=== PATIENT | female | born 1985 | race Caucasian/White ===

== ENCOUNTER → 2016-04-08 | Outpatient (CLI) | payer BC ==
[~2016-04-08] MED LIST: AMBIEN 10MG10 MG PO; BUSPAR DIVIDOSE15 MG PO; CEPHALEXIN250 M1 PO; EFFEXOR-XR150 MG PO; FLINTSTONES1 CTB PO; MACROBID 1100 MG/CAP PO; MOTRIN 600600 MG/TAB PO; NORCO 325 MG-51 TAB PO; PRENATAL MVI; SENOKOT S 50 MG1 TAB PO; VICODIN 5/5001 UDTAB PO
== END ==
LOC: BHSO 15:45
DX: F33.1 Major depressive disorder, recurrent, moderate (principal)

== ENCOUNTER → 2016-04-15 | Outpatient (CLI) | payer BC | LOC: BHSO 15:58 | DX: F41.1 Generalized anxiety disorder (principal) ==

== ENCOUNTER → 2016-04-22 | Outpatient (CLI) | payer BC | LOC: BHSO 15:58 | DX: F33.1 Major depressive disorder, recurrent, moderate (principal) ==

== ENCOUNTER → 2016-04-25 | Outpatient (CLI) | payer BC | LOC: BHSO 16:08 | DX: F41.1 Generalized anxiety disorder (principal) ==

== ENCOUNTER → 2016-04-29 | Outpatient (CLI) | payer BC | LOC: BHSO 15:52 | DX: F33.1 Major depressive disorder, recurrent, moderate (principal) ==

== ENCOUNTER → 2016-05-12 | Outpatient (CLI) | payer BC | LOC: BHSO 15:56 | DX: F33.1 Major depressive disorder, recurrent, moderate (principal) ==

== ENCOUNTER → 2016-05-19 | Outpatient (CLI) | payer BC | LOC: BHSO 15:48 | DX: F33.1 Major depressive disorder, recurrent, moderate (principal) ==

== ENCOUNTER → 2016-05-26 | Outpatient (CLI) | payer BC | LOC: BHSO 15:54 | DX: F41.1 Generalized anxiety disorder (principal) ==

== ENCOUNTER → 2016-06-03 | Outpatient (CLI) | payer BC | LOC: BHSO 14:55 | DX: F41.1 Generalized anxiety disorder (principal) ==

== ENCOUNTER → 2016-06-08 | Outpatient (CLI) | payer BC | LOC: BHSO 15:57 | DX: F41.1 Generalized anxiety disorder (principal) ==

== ENCOUNTER → 2016-06-16 | Outpatient (CLI) | payer BC | LOC: BHSO 15:56 | DX: F41.1 Generalized anxiety disorder (principal) ==

== ENCOUNTER → 2016-06-23 | Outpatient (CLI) | payer BC | LOC: BHSO 15:50 | DX: F41.1 Generalized anxiety disorder (principal) ==

== ENCOUNTER → 2016-06-27 | Outpatient (CLI) | payer BC | LOC: BHSO 15:03 | DX: F33.1 Major depressive disorder, recurrent, moderate (principal) ==

== ENCOUNTER → 2016-07-08 | Outpatient (CLI) | payer BC | LOC: BHSO 16:01 | DX: F41.1 Generalized anxiety disorder (principal) ==

== ENCOUNTER → 2016-07-14 | Outpatient (CLI) | payer BC | LOC: BHSO 15:52 | DX: F41.1 Generalized anxiety disorder (principal) ==

== ENCOUNTER → 2016-07-22 | Outpatient (CLI) | payer BC | LOC: BHSO 15:47 | DX: F41.1 Generalized anxiety disorder (principal) ==

== ENCOUNTER → 2016-07-25 | Outpatient (CLI) | payer BC | LOC: BHSO 16:11 | DX: F41.1 Generalized anxiety disorder (principal) ==

== ENCOUNTER → 2016-08-19 | Outpatient (CLI) | payer BC | LOC: BHSO 16:06 | DX: F33.1 Major depressive disorder, recurrent, moderate (principal) ==

== ENCOUNTER → 2016-09-02 | Outpatient (CLI) | payer BC | LOC: BHSO 15:58 | DX: F41.1 Generalized anxiety disorder (principal) ==

== ENCOUNTER → 2016-09-16 | Outpatient (CLI) | payer BC | LOC: BHSO 15:56 | DX: F41.1 Generalized anxiety disorder (principal) ==

== ENCOUNTER → 2016-09-19 | Outpatient (CLI) | payer BC | LOC: BHSO 16:11 | DX: F41.1 Generalized anxiety disorder (principal) ==

== ENCOUNTER → 2016-09-23 | Outpatient (CLI) | payer BC | LOC: BHSO 16:03 | DX: F41.1 Generalized anxiety disorder (principal) ==

== ENCOUNTER → 2016-09-30 | Outpatient (CLI) | payer BC | LOC: BHSO 15:03 | DX: F41.1 Generalized anxiety disorder (principal) ==

== ENCOUNTER → 2016-10-21 | Outpatient (CLI) | payer BC | LOC: BHSO 15:48 | DX: F41.1 Generalized anxiety disorder (principal) ==

== ENCOUNTER → 2016-11-11 | Outpatient (CLI) | payer BC | LOC: BHSO 15:41 | DX: F41.1 Generalized anxiety disorder (principal) ==

== ENCOUNTER → 2016-11-23 | Outpatient (CLI) | payer BC | LOC: BHSO 15:54 | DX: F41.1 Generalized anxiety disorder (principal) ==

== ENCOUNTER → 2016-12-08 | Outpatient (CLI) | payer BC | LOC: BHSO 15:41 | DX: F41.1 Generalized anxiety disorder (principal) ==

== ENCOUNTER → 2016-12-16 | Outpatient (CLI) | payer BC | LOC: BHSO 15:38 | DX: F41.1 Generalized anxiety disorder (principal) ==

== ENCOUNTER → 2016-12-19 | Outpatient (CLI) | payer BC | LOC: BHSO 15:52 | DX: F41.1 Generalized anxiety disorder (principal) ==

== ENCOUNTER → 2016-12-23 | Outpatient (CLI) | payer BC | LOC: BHSO 15:38 | DX: F41.1 Generalized anxiety disorder (principal) ==

== ENCOUNTER → 2016-12-30 | Outpatient (CLI) | payer BC | LOC: BHSO 16:08 | DX: F41.1 Generalized anxiety disorder (principal) ==

== ENCOUNTER → 2017-01-06 | Outpatient (CLI) | payer BC | LOC: BHSO 16:07 | DX: F41.1 Generalized anxiety disorder (principal) ==

== ENCOUNTER → 2017-01-13 | Outpatient (CLI) | payer BC | LOC: BHSO 14:44 | DX: F41.1 Generalized anxiety disorder (principal) ==

== ENCOUNTER → 2017-01-20 | Outpatient (CLI) | payer BC | LOC: BHSO 15:53 | DX: F41.1 Generalized anxiety disorder (principal) ==

== ENCOUNTER → 2017-01-24 | Outpatient (CLI) | payer BC | LOC: BHSO 15:49 | DX: F41.1 Generalized anxiety disorder (principal) ==

== ENCOUNTER → 2017-01-27 | Outpatient (CLI) | payer BC | LOC: BHSO 15:35 | DX: F41.1 Generalized anxiety disorder (principal) ==

== ENCOUNTER → 2017-02-06 | Outpatient (CLI) | payer BC | LOC: BHSO 16:11 | DX: F41.1 Generalized anxiety disorder (principal) ==

== ENCOUNTER → 2017-02-15 | Outpatient (CLI) | payer BC | LOC: BHSO 15:56 | DX: F41.1 Generalized anxiety disorder (principal) ==

== ENCOUNTER → 2017-02-20 | Outpatient (CLI) | payer BC | LOC: BHSO 12-19 16:06 | DX: F41.1 Generalized anxiety disorder (principal) ==

== ENCOUNTER → 2017-03-09 | Outpatient (CLI) | payer BC | LOC: BHSO 15:59 | DX: F41.1 Generalized anxiety disorder (principal) ==

== ENCOUNTER → 2017-03-30 | Outpatient (CLI) | payer BC | LOC: BHSO 15:57 | DX: F41.1 Generalized anxiety disorder (principal) ==

== ENCOUNTER → 2017-04-07 | Outpatient (CLI) | payer BC | LOC: BHSO 15:42 | DX: F41.1 Generalized anxiety disorder (principal) ==

== ENCOUNTER → 2017-04-21 | Outpatient (CLI) | payer BC | LOC: BHSO 16:06 | DX: F41.1 Generalized anxiety disorder (principal) ==

== ENCOUNTER → 2017-04-27 | Outpatient (CLI) | payer BC | LOC: BHSO 15:56 | DX: F41.1 Generalized anxiety disorder (principal) ==

== ENCOUNTER 2017-05-03 08:57 | Emergency (ER) | payer BC ==
[~2017-05-03] VITALS: Ht 160 cm; Wt 82.0 kg
[2017-05-03 08:59] VITALS: TEMP 98.1
[2017-05-03 09:25] LABS: COLLECTION METHOD CLEAN CATCH
[2017-05-03 09:40] LABS: MUCOUS Present /lpf; PH 7 (5-8); URINE APPEARANCE Hazy; URINE BACTERIA Rare /hpf; URINE BILIRUBIN Negative (NEGATIVE); URINE BLOOD Negative (NEGATIVE); URINE COLOR Yellow; URINE GLUCOSE Negative (NEGATIVE); URINE KETONE Negative (NEGATIVE); URINE LEUKOCYTE ESTERASE Negative (NEGATIVE); URINE NITRATE Negative (NEGATIVE); URINE PROTEIN(semi-quant) 1+ (NEGATIVE); URINE RBC 0-2 /hpf; URINE UROBILINOGEN Negative (NEGATIVE)
[2017-05-03 09:49] LABS: BASO % 0.3 % (0.0-2.0); GRAN % 63.1 % (42.2-75.2); HEMATOCRIT 39.1 % (37.0-47.0); HEMOGLOBIN 13.2 g/dl (12.5-16.0); LYMPH # 2.4 (1.2-3.4); LYMPH % 30.3 % (20.0-51.0); MEAN CELL VOLUME 86 fl (80.0-100.0); MEAN CORPUSCULAR HEMOGLOBIN 29 pg (27.0-31.0); MEAN CORPUSCULAR HGB CONC 34 g/dl (33.0-37.0); MEAN PLATELET VOLUME 9.4 fl (7.4-10.4); MONO # 0.5 (0.1-0.6); MONO % 5.9 % (1.7-9.3); PLATELET COUNT 213 K/mm3 (130-400); RED BLOOD COUNT 4.57 M/mm3 (4.10-5.30); REDCELL DISTRIBUTION WIDTH-CV 12.9 % (11.5-14.5)
[2017-05-03 10:04] LABS: ALBUMIN 4.6 gm/dL (3.5-5.0); BILIRUBIN,TOTAL 0.4 mg/dL (0.0-1.0); C-REACTIVE PROTEIN 1.7 mg/dL (0.0-0.9); CALCIUM 9.2 mg/dL (8.4-10.2); CREATININE, serum 0.81 mg/dL (0.52-1.25); POTASSIUM 4.3 mmol/L (3.4-5.0); TOTAL PROTEIN 7.7 gm/dL (6.4-8.2)
[2017-05-03] MEDS ORDERED: NORCO 325 MG-51 TAB PO (11:42)
[2017-05-03 12:03] VITALS: BP 107/74; PULSE 84
== END 2017-05-03 12:05 | disposition home or self-care (01) ==
LOC: COL.ER 08:57
PROVIDERS: Physician Assistant
DX: R10.9 Unspecified abdominal pain (principal); Z87.42 Personal history of other diseases of the female genital tract; Z88.0 Allergy status to penicillin; Z88.2 Allergy status to sulfonamides; Z88.8 Allergy status to other drugs, medicaments and biological substances
CPT/HCPCS: J1885; J2405; J7030

== ENCOUNTER → 2017-05-05 | Outpatient (CLI) | payer BC | LOC: COL.RAD 10:07 | DX: N83.201 Unspecified ovarian cyst, right side (principal); N85.8 Other specified noninflammatory disorders of uterus ==

== ENCOUNTER → 2017-07-17 | Outpatient (CLI) | payer BC | LOC: BHSO 15:08 | DX: F41.1 Generalized anxiety disorder (principal) ==

== ENCOUNTER → 2017-08-21 | Outpatient (CLI) | payer BC | LOC: BHSO 15:45 | DX: F33.1 Major depressive disorder, recurrent, moderate (principal) ==

== ENCOUNTER → 2017-09-06 | Outpatient (CLI) | payer BC | LOC: BHSO 16:20 | DX: F41.1 Generalized anxiety disorder (principal) ==

== ENCOUNTER → 2017-09-18 | Outpatient (CLI) | payer BC | LOC: BHSO 08:15 | DX: F33.42 Major depressive disorder, recurrent, in full remission (principal) | CPT/HCPCS: G0463 ==

== ENCOUNTER → 2017-09-19 | Outpatient (CLI) | payer BC | LOC: BHSO 16:10 | DX: F33.1 Major depressive disorder, recurrent, moderate (principal) ==

== ENCOUNTER → 2017-10-02 | Outpatient (CLI) | payer BC | LOC: COL.CARD 08:21 | DX: R00.0 Tachycardia, unspecified (principal) ==

== ENCOUNTER 2017-10-05 11:33 | Emergency (ER) | payer BC ==
[~2017-10-05] VITALS: Ht 157.5 cm; Wt 81.8 kg
[2017-10-05 11:36] VITALS: BP 126/80; PULSE 110; TEMP 98.2
[2017-10-05 12:17] LABS: COLLECTION METHOD CLEAN CATCH
[2017-10-05 12:30] LABS: MUCOUS Present /lpf; PH 7 (5-8); URINE APPEARANCE Hazy; URINE BACTERIA Rare /hpf; URINE BILIRUBIN Negative (NEGATIVE); URINE BLOOD Negative (NEGATIVE); URINE COLOR Yellow; URINE GLUCOSE Negative (NEGATIVE); URINE KETONE Negative (NEGATIVE); URINE LEUKOCYTE ESTERASE Negative (NEGATIVE); URINE NITRATE Negative (NEGATIVE); URINE PROTEIN(semi-quant) 1+ (NEGATIVE); URINE RBC 0-2 /hpf; URINE UROBILINOGEN Negative (NEGATIVE)
[2017-10-05 12:32] LABS: BASO % 0.2 % (0.0-2.0); GRAN # 5.3 (1.4-6.5); GRAN % 59.4 % (42.2-75.2); HEMATOCRIT 38.8 % (37.0-47.0); HEMOGLOBIN 13.5 g/dl (12.5-16.0); LYMPH % 33.6 % (20.0-51.0); MEAN CELL VOLUME 85 fl (80.0-100.0); MEAN CORPUSCULAR HEMOGLOBIN 30 pg (27.0-31.0); MEAN CORPUSCULAR HGB CONC 35 g/dl (33.0-37.0); MEAN PLATELET VOLUME 9.3 fl (7.4-10.4); MONO # 0.6 (0.1-0.6); MONO % 6.5 % (1.7-9.3); PLATELET COUNT 280 K/mm3 (130-400); RED BLOOD COUNT 4.56 M/mm3 (4.10-5.30); REDCELL DISTRIBUTION WIDTH-CV 12.5 % (11.5-14.5)
[2017-10-05 12:43] LABS: ALBUMIN 4.2 gm/dL (3.5-5.0); BILIRUBIN,TOTAL 0.3 mg/dL (0.0-1.0); C-REACTIVE PROTEIN 1.7 mg/dL (0.0-0.9); CALCIUM 9.2 mg/dL (8.4-10.2); CREATININE, serum 0.85 mg/dL (0.52-1.25); POTASSIUM 3.8 mmol/L (3.4-5.0); TOTAL PROTEIN 7.6 gm/dL (6.4-8.2)
== END 2017-10-05 13:45 | disposition home or self-care (01) ==
LOC: COL.ER 11:33
PROVIDERS: Physician Assistant
DX: R10.9 Unspecified abdominal pain (principal); Z87.42 Personal history of other diseases of the female genital tract; Z87.440 Personal history of urinary (tract) infections; Z79.891 Long term (current) use of opiate analgesic
CPT/HCPCS: J1885; J2405; J7030

== ENCOUNTER → 2017-10-09 | Outpatient (CLI) | payer BC ==
[~2017-10-09] MED LIST changes: +ALDACTONE 100M100 MG PO; -AMBIEN 10MG10 MG PO; +AMBIEN CR 12.12.5 MG PO; -EFFEXOR-XR150 MG PO; +KLONOPIN 0.5MG0.5 MG PO; +LAMICTAL200 MG PO; +SEROQUEL 1100 MG/TAB PO; +VENLAFAXINE225 MG PO
== END ==
LOC: BHSO 12:59
DX: F41.1 Generalized anxiety disorder (principal)

== ENCOUNTER → 2017-10-09 | Outpatient (CLI) | payer BC | LOC: COL.RAD 08:24 | DX: R93.2 Abnormal findings on diagnostic imaging of liver and biliary tract (principal) | CPT/HCPCS: A9537 ==

== ENCOUNTER 2017-10-10 13:27 | Day surgery (SDC) | payer BC ==
[~2017-10-10] VITALS: Ht 157.5 cm; Wt 84.0 kg
[~2017-10-10 13:27] MED LIST changes: -ALDACTONE 100M100 MG PO; -KLONOPIN 0.5MG0.5 MG PO; -LAMICTAL200 MG PO; -SEROQUEL 1100 MG/TAB PO
[2017-10-10] MEDS ORDERED: LAMICTAL200 MG PO (13:58)
[2017-10-10] MEDS ORDERED: SEROQUEL 1100 MG/TAB PO (13:58)
[2017-10-10] MEDS ORDERED: KLONOPIN 0.5MG0.5 MG PO ×2 (13:59→14:00)
[2017-10-10] MEDS ORDERED: ALDACTONE 100M100 MG PO (14:00)
[2017-10-10 14:02] VITALS: BP 127/79; PULSE 98; TEMP 98.7
[2017-10-10 19:50] VITALS: BP 121/77; PULSE 108
[2017-10-10 20:05] VITALS: BP 118/76; PULSE 109
[2017-10-10 20:08] VITALS: TEMP 97
[2017-10-10] MEDS ORDERED: NORCO 325 MG-51 TAB PO (20:12)
[2017-10-10 20:20] VITALS: BP 132/93; PULSE 100
[2017-10-10 20:35] VITALS: BP 103/87; PULSE 100
== END 2017-10-10 20:40 | disposition home or self-care (01) ==
LOC: SDCO 13:27
DX: K81.2 Acute cholecystitis with chronic cholecystitis (principal); E78.00 Pure hypercholesterolemia, unspecified; F41.9 Anxiety disorder, unspecified; F32.9 Major depressive disorder, single episode, unspecified; G43.909 Migraine, unspecified, not intractable, without status migrainosus; Z83.3 Family history of diabetes mellitus; Z82.49 Family history of ischemic heart disease and other diseases of the circulatory system; Z82.3 Family history of stroke
CPT/HCPCS: J0330; J1100; J1885; J2270; J2405; J2704; J2710; J2765; J3010; J7120

== ENCOUNTER → 2017-11-06 | Outpatient (CLI) | payer BC ==
[~2017-11-06] MED LIST changes: +ALDACTONE 100M100 MG PO; +KLONOPIN 0.5MG0.5 MG PO; +LAMICTAL200 MG PO; +SEROQUEL 1100 MG/TAB PO
== END ==
LOC: BHSO 08:46
DX: F41.1 Generalized anxiety disorder (principal)

== ENCOUNTER → 2017-11-17 | Outpatient (CLI) | payer BC | LOC: BHSO 14:59 | DX: F41.1 Generalized anxiety disorder (principal) ==